=== PATIENT | male | born 1935 | race Caucasian/White ===

== ENCOUNTER 2019-02-23 11:10 | Inpatient (IN) | payer MEDICARE ==
[~2019-02-23] VITALS: Ht 177.8 cm; Wt 89.0 kg
[~2019-02-23 11:10] MED LIST: ASPI325; ATEN25 PO; CITRICAL; METO50ER PO
[2019-02-23 13:45] LABS: BASOPHILS ABSOLUTE AUTO 0.04 K/mm3 (0.00-0.23); BASOPHILS PERCENT AUTO 0 % (0-2); EOSINOPHILS PERCENT AUTO 0 % (0-6); Hematocrit 41.6 % (37.0-53.0); Hemoglobin 12.5 g/dL (13.5-17.5); IMMATURE GRAN ABSOLUTE AUTO 0.05 K/mm3 (0.00-0.10); IMMATURE GRAN PERCENT AUTO 0 % (0-1); LYMPHOCYTES ABSOLUTE AUTO 0.92 K/mm3 (0.84-5.20); LYMPHOCYTES PERCENT AUTO 7 % (21-46); MONOCYTES ABSOLUTE AUTO 1.44 K/mm3 (0.16-1.47); MONOCYTES PERCENT AUTO 10 % (4-13); Mean Corpuscular HGB 22.8 pg (26.0-34.0); Mean Corpuscular Volume 76 fL (80-100); Mean Platelet Volume 10.6 fL (9.1-12.4); NEUTROPHILS ABSOLUTE AUTO 11.57 K/mm3 (1.96-9.15); NEUTROPHILS PERCENT AUTO 82 % (41-73); Platelet Count 216 K/mm3 (150-400); RDW Coefficient Variation 22.5 % (11.7-14.2); RDW Standard Deviation 60.3 fL (35.1-46.3); Red Blood Cell Count 5.48 M/mm3 (4.30-5.90); White Blood Cell Count 14.02 K/mm3 (4.00-11.30)
[2019-02-23 14:08] LABS: Alanine Aminotransfer (ALT/SGP 17 U/L (12-78); Albumin, Blood 3.5 g/dL (3.4-5.0); Alk Phos 71 U/L (50-136); Anion Gap 5 mmol/L (6-16); Aspartate Aminotrans (AST/SGOT 31 U/L (12-37); Blood Urea Nitrogen 19 mg/dL (8-24); Bun/Creatinine Ratio 25.1 (12.0-20.0); CO2, Blood 26 mmol/L (21-32); CPK Creatine Kinase 267 U/L (39-308); Calcium, Blood 8.7 mg/dL (8.5-10.1); Chloride, Blood 109 mmol/L (98-108); Creatine Kinase MB Index 0.7 (0.0-4.0); Creatinine, Blood 0.76 mg/dL (0.60-1.20); Globulin, Blood 3.5 g/dL (2.2-4.0); Glomerular Filtration Rate >60 (60-); Glucose, Blood 188 mg/dL (70-99); Potassium, Blood 4.7 mmol/L (3.5-5.5); Sodium, Blood 140 mmol/L (136-145)
[2019-02-23 14:28] LABS: Percent Saturation 19.5 % (20.0-50.0)
--- NOTE | 2019-02-23 18:27 | NUR ---
SHIFT SUMMARY PT CONFUSED, PLEASANT, COOPERATIVE, TRIES TO GET OOB. PAIN MANAGED WITH 5 MG PERCOCET. AAKASH PO. VOIDING WELL USES URINAL WITH ASSIST. BED ALARM ON. WILL REPORT TO ONCOMING ROBIN RN.
--- NOTE | 2019-02-23 19:55 | NUR ---
dr snyder rounding on pt. TESTING MACHINE OPERATOR and this RN assisted with splinting lle. foot elevated on [address] Snyder's orders.
[2019-02-23 21:00] LABS: Source, Urine Clean Catch
[2019-02-23 21:02] LABS: Appearance, Urine Clear (Clear); Bilirubin, Urine Neg (Neg); Blood, Urine Neg (Neg); Color, Urine Yellow (P-Yellow); Glucose Qualitative, Urine 2+ (Neg); Ketones, Urine Neg (Neg); Leukocyte Esterase, Urine Neg (Neg); Nitrite, Urine Neg (Neg); Protein, Urine Neg (Neg); Urobilinogen, Urine NORM (Normal)
--- NOTE | 2019-02-23 21:25 | NUR ---
pt continues to attempt to exit bed, approx q 10 min, is reoriented, continually confused of place/situation. notifed hospitalist of situation. no new orders, will continue to monitor and stay outside pt's room.
--- NOTE | 2019-02-23 22:13 | NUR ---
PT ATTEMPTS TO GET OUT OF BED REPEATEDLY. THIS RN CALLED PT'S DAUGHTER IN HOPES SHE IS ABLE TO REASSURE PT ABOUT SITUATION, ABOUT PT'S CATS AT HOME.
--- NOTE | 2019-02-23 23:00 | NUR ---
provided pt with medication per mar for anxiety. pt gradually showed signs of relaxation, lessening of attempts to exit bed. this rn sat with pt, danya wilkes with pt, assured pt he is safe, his cats are safe at home. pt continues to be confused, but appears to become sleepy.
--- NOTE | 2019-02-23 23:40 | NUR ---
pt sleeping, has not attempted to exit bed since 2299
--- NOTE | 2019-02-24 01:55 | NUR ---
AGITATION 0110-PT AWAKENS ATTEMPTING TO EXIT BED, INCONTINENT OF URINE, AGITATED WHEN TWO NURSING STAFF MEMBERS ATTEMPT TO CHANGE BED AND ATTENDS. NASIR VEST APPLIED 0150-PT CONTINUES TO ATTEMPT BED EXIT, DOES NOT REORIENT DESPITE CONTINUOUS (APPROX Q 2 MIN) ATTEMPTS TO REASSURE HIM OF SAFETY AND SITUATION. REQUESTS A KNIFE OR SCISSORS SO THAT HE MAY CUT THE NASIR OFF, RAISES VOICE WHEN TOLD NURSING STAFF WISH TO KEEP HIM SAFE, PREVENT A FALL
[2019-02-24 04:34] LABS: BASOPHILS ABSOLUTE AUTO 0.06 K/mm3 (0.00-0.23); BASOPHILS PERCENT AUTO 1 % (0-2); EOSINOPHILS PERCENT AUTO 1 % (0-6); Hematocrit 40.1 % (37.0-53.0); Hemoglobin 12.1 g/dL (13.5-17.5); IMMATURE GRAN ABSOLUTE AUTO 0.03 K/mm3 (0.00-0.10); IMMATURE GRAN PERCENT AUTO 0 % (0-1); LYMPHOCYTES ABSOLUTE AUTO 1.66 K/mm3 (0.84-5.20); LYMPHOCYTES PERCENT AUTO 15 % (21-46); MONOCYTES ABSOLUTE AUTO 1.59 K/mm3 (0.16-1.47); MONOCYTES PERCENT AUTO 14 % (4-13); Mean Corpuscular HGB Conc 30.2 g/dL (31.5-36.5); Mean Corpuscular Volume 76 fL (80-100); Mean Platelet Volume 10.2 fL (9.1-12.4); NEUTROPHILS ABSOLUTE AUTO 7.99 K/mm3 (1.96-9.15); NEUTROPHILS PERCENT AUTO 70 % (41-73); Platelet Count 215 K/mm3 (150-400); RDW Coefficient Variation 22.5 % (11.7-14.2); Red Blood Cell Count 5.27 M/mm3 (4.30-5.90); White Blood Cell Count 11.43 K/mm3 (4.00-11.30)
[2019-02-24 04:53] LABS: Anion Gap 5 mmol/L (6-16); Blood Urea Nitrogen 13 mg/dL (8-24); Bun/Creatinine Ratio 17.6 (12.0-20.0); CO2, Blood 26 mmol/L (21-32); Calcium, Blood 8.7 mg/dL (8.5-10.1); Chloride, Blood 113 mmol/L (98-108); Creatinine, Blood 0.74 mg/dL (0.60-1.20); Glomerular Filtration Rate >60 (60-); Glucose, Blood 146 mg/dL (70-99); Potassium, Blood 3.7 mmol/L (3.5-5.5); Sodium, Blood 144 mmol/L (136-145)
--- NOTE | 2019-02-24 05:13 | NUR ---
shift summary: vss, no acute changes. pt remained confused with multiple attempts to exit bed, remove wraps, jacqueline on LLE and coban on arms. Incontinent of urine x 2, urinal with >600 ml out clear yellow urine. no appearance of pain with stillness of LLE, pt states leg painful when moving/repositioning but is unable to give pain scale, FACE scale of 2. pt slept for only 3 hrs this shift.
--- NOTE | 2019-02-24 17:24 | NUR ---
SHIFT SUMMARY PT CONFUSED, REDIRECTS EASILY, FOLLOWS DIRECTION, PLEASANT & COOPERATIVE WITH CARE. VSS. LEFT ANKLE SPLINT, NWB, STAND PIVOT TO CHAIR WITH 2 PP MAX ASSIST, ELEVATED. TRIES TO GET UP TO GO HOME CONTINUOUSLY, NASIR ON FOR SAFETY. PAIN MANAGED WITH 5 MG PERCOCET Q4H. AAKASH PO, DENIES N&V. VOIDING USING URINAL, ATTENDS ON FOR INCONTINENT VOIDS. WILL REPORT TO ONCOMING NOC RN.
--- NOTE | 2019-02-25 06:17 | NUR ---
SHIFT SUMMARY: IRVING IS ALERT AND ORIENTED TO PERSON. HE IS PLEASANTLY CONFUSED. HE IS ABLE TO BRIDGE AND REPOSITIONS HIMSELF FREQUENTLY. VEST IN PLACE. HE DOES CALL OUT AND COMPLAIN THAT HE IS NOT ABLE TO GET OUT OF BED. REORIENTATION LASTS FOR ONLY A COUPLE OF MINUTES. HE HAS COMPLAINED OF PAIN IN HIS LLE FOR WHICH THE PERCOCET HAS ALLOWED HIM TO REST COMFORTABLY. HE IS CONTINENT/INCONTINENT, ATTENDS IN PLACE. HE IS TOLERATING PO INTAKE WELL. CAPILLARY REFILL IN THE LEFT TOES IS BRISK. HE DOES NOT USE HIS CALL LIGHT. HE HAS BEEN COOPERATIVE, BUT FREQUENTLY TRIES TO GET OUT OF BED WHILE AWAKE. HE IS LYING IN BED WITH HIS CALL LIGHT ACROSS HIS LAP.
--- NOTE | 2019-02-25 18:36 | NUR ---
SUMMARY IN BED AT THIS TIME, [facility] CALLS OUT TO ASK FOR HELP TO WALK "TO BEDROOM" PATIENT REMOVING GOWN. PATIENT IS ORIENTED TO SELF. NASIR VEST IN PLACE. PATIENT RE ORIENTED TO SURROUNDINGS AND HAS NO RETENTION-ASKS THE SAME QUESTION WITHIN 30-45 SECONDS PATIENT ASKS TO USE URINAL BUT HAS OCC SMALL AMOUNT OF INCONTINENCE. SPLINT IN PLACE TO LEFT ANKLE AND ELEVATED ON PILLOWS
--- NOTE | 2019-02-25 22:31 | NUR ---
PATIENT FOLLOWS COMMANDS WHEN RN OR EMERGENCY MANAGEMENT CONSULTANT ARE INSTRUCTING HIM. DOES NOT REMEMBER TO CALL FOR HELP WHEN HE NEEDS ANYTHING. ATTEMPS TO GET OUT OF BED WITHOUT CALLING. REMOVING CLOTILDE WRAPS ON SPLINT. PATIENT IS NON WEIGHT BEARING ON LT LOWER EX. HE IS CURRENTLY IN A VEST NASIR. LT LOWER EX IS WRAPPED FROM TOES TO KNEE WITH CAST GAUZE WITH A SPLINT AND CLOTILDE WRAP OVER FROM KNEE TO TOES. BRISK CAP RESPONSE, POSITIVE SENSATION IN TOES.
--- NOTE | 2019-02-26 03:34 | NUR ---
PATIENT HAS BEEN AWAKE THE ENTIRE NIGHT, HE STATED THAT HE WAS NOT TIRED. HE CONTINUES TO BE DISORIENTED/CONFUSED ABOUT WHERE HE IS AND WHY HE IS NOT AT HOME. HE FOLLOWS COMMANDS WELL WHILE RN/LOOM CONTROL CHAIN BUILDER IS IN THE ROOM. HE DID USE THE CALL LIGHT APPROPRIATELY THIS MORNING, HE WANTED HIS PANTS SO THAT HE COULD GO HOME.
--- NOTE | 2019-02-26 17:21 | NUR ---
SUMMARY PT REPEATEDLY TRIED TO CLIMB OUT OF BED AND CHAIR T/O DAY. NASIR VEST FOR SAFETY WELL MONITORS. MEDICATED PT ONCE DURING SHIFT AFTER REPORT OF PAIN TO LLE. ATTEMPTED TO REORIENT FREQUENTLY T/O SHIFT TO SITUATION/SAFETY PRECAUTIONS. PT HAS DIFFICULTY MAINTAINING NONWB STATUS TO LLE. ASSISTED TO BSC MULTIPLE TIMES DURING DAY. PT VOIDED APPROXIMATELY 25 ML THIS AM. HAD 3 INCONTINENT VOIDS. BS THIS AFTERNOON SHOWED 237 ML URINE. PT STATING CANNOT GO WHEN WATCHED, ADVISED PT CANNOT BE LEFT ALONE FOR SAFETY. PT NOW SITTING UP IN CHAIR, WATCHING TV. VEST IN PLACE AND TAB ALARM ON. DENIES ANY NEEDS AT THIS TIME. CALL LIGHT IN REACH.
--- NOTE | 2019-02-27 04:13 | NUR ---
SHIFT SUMMARY PT IS VERY CONFUSED AND HAS REQUIRED CONTINUATION OF NASIR VEST FOR SAFETY PURPOSES. PT HAS TRIED TO CLIMB OUT OF BED MULTIPLE TIMES, TAKE OFF SPLINT, AND REMOVE VEST MULTIPLE TIMES THIS SHIFT. PT HAS NOT BEEN ABLE TO SLEEP AND WAS GIVEN DESYREL PER ORDERS BUT THIS DID NOT SEEM TO HELP MUCH WITH INSOMNIA. PT HAS BEEN REPOSITIONED MULTIPLE TIMES. PT IS VOIDING, USING URINAL AND OCCASIONAL INCONTINENT VOIDS. PT HAS BEEN UP TO BEDSIDE COMMODE SEVERAL TIMES THIS SHIFT AND REQUIRED 2X ASSIST WITH WALKER. PT HAS DENIED PAIN. ASSISTED WITH ADL'S PRN.
[2019-02-27 04:41] LABS: BASOPHILS ABSOLUTE AUTO 0.06 K/mm3 (0.00-0.23); BASOPHILS PERCENT AUTO 1 % (0-2); EOSINOPHILS PERCENT AUTO 3 % (0-6); Hematocrit 38.3 % (37.0-53.0); Hemoglobin 11.6 g/dL (13.5-17.5); IMMATURE GRAN ABSOLUTE AUTO 0.04 K/mm3 (0.00-0.10); IMMATURE GRAN PERCENT AUTO 0 % (0-1); LYMPHOCYTES ABSOLUTE AUTO 1.32 K/mm3 (0.84-5.20); LYMPHOCYTES PERCENT AUTO 11 % (21-46); MONOCYTES ABSOLUTE AUTO 1.39 K/mm3 (0.16-1.47); MONOCYTES PERCENT AUTO 12 % (4-13); Mean Corpuscular HGB 23.1 pg (26.0-34.0); Mean Corpuscular HGB Conc 30.3 g/dL (31.5-36.5); Mean Corpuscular Volume 76 fL (80-100); Mean Platelet Volume 10.2 fL (9.1-12.4); NEUTROPHILS ABSOLUTE AUTO 8.42 K/mm3 (1.96-9.15); NEUTROPHILS PERCENT AUTO 73 % (41-73); Platelet Count 233 K/mm3 (150-400); RDW Coefficient Variation 22.3 % (11.7-14.2); RDW Standard Deviation 59.9 fL (35.1-46.3); Red Blood Cell Count 5.03 M/mm3 (4.30-5.90); White Blood Cell Count 11.63 K/mm3 (4.00-11.30)
[2019-02-27 05:02] LABS: Alanine Aminotransfer (ALT/SGP 18 U/L (12-78); Albumin, Blood 2.9 g/dL (3.4-5.0); Albumin/Globulin Ratio 0.8 (0.8-1.8); Alk Phos 54 U/L (50-136); Anion Gap 4 mmol/L (6-16); Aspartate Aminotrans (AST/SGOT 16 U/L (12-37); Bilirubin, Total 0.7 mg/dL (0.1-1.0); Blood Urea Nitrogen 19 mg/dL (8-24); CO2, Blood 29 mmol/L (21-32); Calcium, Blood 9.2 mg/dL (8.5-10.1); Chloride, Blood 107 mmol/L (98-108); Creatinine, Blood 0.83 mg/dL (0.60-1.20); Globulin, Blood 3.6 g/dL (2.2-4.0); Glomerular Filtration Rate >60 (60-); Glucose, Blood 152 mg/dL (70-99); Sodium, Blood 140 mmol/L (136-145); Total Protein, Blood 6.5 g/dL (6.4-8.2)
--- NOTE | 2019-02-27 16:17 | NUR ---
SHIFT SUMMARY THE PATIENT HAS BEEN AWAKE SINCE ABOUT 1130. HE SEEMS TO BE MIXED CONT/INCONT AND INFORMS STAFF WHEN HE NEEDS TO VOID OR IF HE HAS VOIDED ALREADY. HE DOES NOT REMEMBER TO USE THE CALL LIGHT, BUT CALLS OUT FOR STAFF ASSIST NEEDED. THE PATIENT HAS ATTEMPTED TO CLIMB OUT OF BED A FEW TIMES TODAY, HOWEVER IT HASNT BEEN EXCESSIVE; NASIR VEST IN PLACE SAFETY MEASURE FOR THE TIME BEING. THE PATIENT IS VERY CONFUSED AND ORIENTED TO SELF ONLY. HE FORGETS THAT HE HAS A FRACTURED LEG WITH A CAST ON. PATIENT REPOSITIONED AT MINIMUM OF Q2HRS. VITALS ARE STABLE. THE PATIENT IS COOPERATIVE AND FOLLOWS DIRECTIONS WELL. WILL CONTINUE TO MONITOR AND PROVIDE CARE NEEDED.
--- NOTE | 2019-02-27 18:19 | NUR ---
LOOKING THROUGH THE PATIENTS CHART I NOTED THAT THE PATIENT HAS HAD NO DOCUMENTED BM's SINCE ADMIT ON 02/23... I AM NOT AWARE OF WHEN HIS LAST BM WAS PRIOR TO ADMIT. PATIENT HAD NO PRN BOWEL CARE MEDS ORDERED. I CALLED DR WASHINGTON AT APPROX [phone] AND INFORMED HER OF THE SITUATION AND SHE PROVIDED ORDERS FOR BOWEL CARE ORDER SET.
--- NOTE | 2019-02-27 20:27 | NUR ---
PATIENT CONFUSED. BED EXIT ALARM. PATIENT PULLED OUT OF NASIR. PLACED BACK IN BED AND NASIR VEST ADJUSTED. PATIENT PULLING AT SIDE RAILS AND UNABLE TO ORIENT AT THIS TIME. PULLED OUT IV AT SHIFT CHANGE.
--- NOTE | 2019-02-27 22:59 | NUR ---
HOSPITALIST DR PIPER RENEWED NASIR VEST AND ADDED BILATERAL SOFT WRIST RESTRAINTS. PATIENT HAD PULLED OUT PIV AND WAS TEARING VEST OFF. PATIENT BANGING ON SIDE RAILS AND NOT ABLE TO REORIENT AT THIS ITME. HX DEMENTIA. CAST ON LEFT FOOT.
--- NOTE | 2019-02-28 02:50 | NUR ---
PATIENT HALLUCINATING, HEARING SOMEONE KNOCKING ON A DOOR. PATIENT ANXIOUS CONTINUES TO YELL OUT. WILL CONTINUE TO MONITOR.
--- NOTE | 2019-02-28 04:44 | NUR ---
SHIFT SUMMARY PATIENT HAD NO ACUTE CHANGES OBSERVED. AXOX ONE. IN NASIR VEST AND BILATERAL SOFT WRIST RESTRAINTS. PULLED OUT PIV, RIPPED NASIR VEST, BANGING AGAINST SIDE RAILS, AND ATTEMPTED BED EXITS ACTIVATING BED ALARM. HAS CAST ON FX LEFT LEG; NON-WEIGHT BEARING. VSS/AFBERILE. LEG PAIN REPORTED AND PERCOCET GIVEN PER [facility]. NEW PIV PLACED. DENIES SOB AND N/V. BED IN LOWEST POSITION WITH ALARM ACTIVATED. WILL CONTINUE TO MONITOR UNTIL DAY SHIFT NURSE ASSUMES CARE,
--- NOTE | 2019-02-28 16:23 | NUR ---
SHIFT SUMMARY NO ACUTE CHANGES THIS SHIFT, PT WORKED WITH PT ANS OT AND WAS RESTING IN RECLINER CHAIR MOST OF THE SHIFT. PT WAS MEDICATED X2 FOR PAIN. PT HAD A GOOD APETITE DURING THE SHIFT. PT BECAME AGITATED A COUPLE OF TIME, BUT WAS EASILY REDIRECTED. BED,CHAIR ALARM ON AND CALL LIGHT WITH IN REACH. WILL COUNTINUE TO MONITOR THE REMAINDER OF THE SHIFT AND REPORT TO ONCOMING RN.
--- NOTE | 2019-02-28 16:33 | NUR ---
SHIFT SUMMARY PT HAD NO ACUTE CHANGES THIS SHIFT. PT HAD RESTRAINTS D/C AND HAS BEEN APPROPRIATE ALL DAY WITH STAYING IN BED AND NOT PULLING AT LINES. PT HAS A CAST ON LEFT LEG. PT FRANCESCO PAIN DURING THE SHIFT. CALL LIGHT AND BED ALARM ON. WILL COUNTINE TO MONITOR AND REPORT TO ON COMING SHIFT.
--- NOTE | 2019-03-01 03:09 | NUR ---
CARE ASSISTANT SUMMARY PT AAOX1, VERY CONFUSED. FOLLOWS DIRECTION BUT CONSTANTLY NEEDS REORIENTATION/REDIRECTION. CONSTANTLY THROUGH THE NIGHT THE PT YELLS OUT DEMANDING HELP TO HAVE A BM. PT STATES HE NEEDS TO GO TO BATHROOM AND DOES NOT COMPREHEND THAT HE CANNOT WALK ON HIS L LEG AND GET TO BATHROOM. PT ASSISTED WITH BEDPAN NUMEROUS TIMES THROUGH THE NIGHT. SEVERAL VERY SMALL BM'S/SMEARS NOTED. PT GIVEN SUPPOSITORY TO HELP WITH BM. PT ALSO PLACED BACK IN RESTRAINTS TONIGHT DUE TO CONSTANTLY TRYING TO GET OUT OF BED. PT IS A HIGH FALL RISK AND CAN NOT AMBULATE ON L LEG. DR MARTINEZ IN TO SEE PT AT EARLY IN THE NIGHT AND STATED PT WOULD HAVE ANOTHER XR OF L LEG LATER THIS MORNING. VSS, WILL CONTINUE TO MONITOR.
--- NOTE | 2019-03-01 14:01 | NUR ---
Initial Visit: Pt is sitting out in the hallway in a wheelchair. He is confused and difficult to reorient. Nursing staff has difficulty transfering him in the bathroom and he is a heavy 2 person assist. Nursing reports that he appears to be getting more confused. Nurse reports that it may be beneficial to get pt home to his familiar surroundings. Spoke with daughter and asisted to fill out an updated POLST form to match DNR/DNI status. DaughterJayme, signs POLST form. Plan is to discharge with home health and to have 24 hour caregivers in the home. Pt would be appropriate for hospice if he continues to decline after this injury. Spoke to Dr. Gamez. New POLST form signed to be sent home with pt. No other concerns at this time. Pt to discharge home today.
[2019-03-01] MEDS ORDERED: QUET25 PO (15:35)
--- NOTE | 2019-03-01 18:25 | NUR ---
DISCHARGE SUMMARY PT STABLE A&O X3. PT DISCHARGING HOME WITH FAMILY AND ROLLER MAKER. PT SENT WITH D/C INSTRUCTIONS. PT D/C BY MEDICAL TRANSPORT. PT BELONGINGS SENT WITH PT.
--- NOTE | 2019-03-04 08:26 | NUR ---
PT DAUGHTER FURTHER EDUCATED ON DC INSTRUCTIONS. PT DAUGHTER, SHAE, UPDATED ON PT DC INSTRUCTIONS. PT DAUGHTER REQUESTING PAIN MEDS FOR PT & A SLEEP AIDE. PT DAUGHTER INSTRUCTED TO PTS PCP WITH [facility]. NO FURTHER QUESTIONS REQURIED AT THIS TIME.
== END 2019-03-01 16:46 | disposition home or self-care (01) | DRG 563 ==
LOC: ER 11:10 → SURS 14:29 → MEDS 02-27 08:00 → ENPENDDIS 03-01 15:26 → MEDS 03-01 16:46
PROVIDERS: Internal Medicine; Nurse Practitioner Acute Care; Physician Assistant; ADMIT Family Medicine
DX: S82.62XA Displaced fracture of lateral malleolus of left fibula, initial encounter for closed fracture (principal); G30.9 Alzheimer's disease, unspecified; F02.80 Dementia in other diseases classified elsewhere, unspecified severity, without behavioral disturbance, psychotic disturbance, mood disturbance, and anxiety; I48.0 Paroxysmal atrial fibrillation; W19.XXXA Unspecified fall, initial encounter; D50.9 Iron deficiency anemia, unspecified; S92.352A Displaced fracture of fifth metatarsal bone, left foot, initial encounter for closed fracture; Z23 Encounter for immunization
CPT/HCPCS: 29515; 36415; 71045; 73610; 80048; 80053; 81003; 82550; 82553; 82728; 83540; 83550; 83735; 84145; 85025; 90686; 93005; 93010; 97163; 97166; 97530; 97535; 99285-25; G0008; J0456; J0696; J1650; J7030; J7050